=== PATIENT | female | born 1940 | race Caucasian/White ===

== ENCOUNTER → 2018-04-18 | Outpatient (CLI) | payer OTHER ==
--- NOTE | 2018-04-18 14:51 | Diagnostic Imaging Report ---
INDICATION: Right-sided abdominal pain. FINDINGS: The lungs are clear. The heart size and vascularity are normal. There is no effusion or pneumothorax. There is some air trapping or an aggressive inspiratory volume. The chest is otherwise negative. There are clips at the gallbladder fossa. The bowel gas pattern is unremarkable. There is stool within the colon but its volume is not pathologic. No abnormal distention of small or large bowel. No air/fluid levels. No pneumatosis. No free gas. IMPRESSION: No acute finding is apparent. Dictated by: Dictated on workstation # [id number]
== END ==
LOC: RAD FS 13:57
PROVIDERS: ATTEND Family Medicine
DX: R10.11 Right upper quadrant pain (principal)
CPT/HCPCS: 74022

== ENCOUNTER 2020-07-11 10:45 | Emergency (ER) | payer MEDICARE ==
[~2020-07-11] VITALS: Ht 170 cm; Wt 81.0 kg
[2020-07-11 10:55] VITALS: BP 142/75
--- NOTE | 2020-07-11 11:16 | ED General ---
General Chief Complaint: General Problems/Pain Stated Complaint: INSOMNIA | STOMACH ACHE | NO APPETITE Nursing Triage Note: VAGUE COMPLAINTS OF APPETITE CHANGES AND CANT SLEEP. Nursing Sepsis Screen: No Definite Risk Source of Information: Patient History of Present Illness Date Seen by Provider: July 11, 2020 Time Seen by Provider: 11:07 Initial Comments 79-year-old female presents with complaint of not being able to sleep at night. Symptoms have been going on for several weeks and getting worse. Months of feeling shaky and anxious. Patient relating most of her symptoms from her knee replacement over a month ago, she took pain medication up until a few days ago and says that it upset her stomach but she was still taking it daily. Denies any fever chills, cough or shortness of air, chest pain or swelling of ext remities. Currently denies any abdominal pain, but states she is occasionally nauseous and has a better appetite. Allergies and Home Medications Allergies Coded Allergies: amoxicillin (Verified Allergy, Unknown, 07/11/20) cyclobenzaprine (Verified Allergy, Unknown, 07/11/20) lisinopril (Verified Allergy, Unknown, 07/11/20) Patient Home Medication List Home Medication List Reviewed: Yes Review of Systems Review of Systems Constitutional: No chills, No fever; malaise EENTM: no symptoms reported Respiratory: No short of breath Cardiovascular: No chest pain, No palpitations Gastrointestinal: No abdominal pain, No constipation, No diarrhea; loss of appetite, nausea; No vomiting Musculoskeletal: No back pain, No neck pain Skin: No change in color, No lesions, No rash Psychiatric/Neurological: Anxiety; Denies Depressed; Emotional Problems (crying more than normal); Denies Headache, Denies Numbness, Denies Paresthesia, Denies Weakness Past [id number] Hx Patient Social History Alcohol Use: Denies Use Smoking Status: Never a Smoker Recent Infectious Disease Expo: No Recent Hopitalizations: No Seasonal Allergies Seasonal Allergies: No Past Medical History Surgeries: Yes Appendectomy, Gallbladder, Hysterectomy, Orthopedic Respiratory: No Cardiac: Yes Hypertension 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 oz. kg; 28.00 BMI Method: General Appearance: No Apparent Distress, WD/WN HEENT: PERRL/EOMI, Normal ENT Inspection Respiratory: Chest Non Tender, Lungs Clear Cardiovascular: Regular Rate, Rhythm, No Edema Gastrointestinal: No Organomegaly, No Pulsatile Mass, Non Tender, Soft; No Distended, No Guarding, No Tenderness Back: No CVA Tenderness; No Muscle Spasm Extremity: Normal Capillary Refill, Normal Inspection, Normal Range of Motion, Non Tender Neurologic/Psychiatric: Alert, Oriented x3, No Motor/Sensory Deficits, Normal Mood/Affect Skin: Normal Color, Warm/Dry Progress/Results/Core Measures Suspected Sepsis Recent Fever Within 48 Hours: No Infection Criteria Present: None New/Unexplained Altered Menta: No Sepsis Screen: No Definite Risk SIRS Temperature: Pulse: 83 Respiratory Rate: 18 Laboratory Tests 07/11/20 11:08: White Blood Count 8.3 Blood Pressure 142 /75 Mean: 97 Laboratory Tests 07/11/20 11:08: Creatinine 0.76, Platelet Count 329, Total Bilirubin 0.8 Results/Orders Lab Results Laboratory Tests Test 07/11/20 11:08 07/11/20 11:25 Range/Units White Blood Count 8.3 4.3-11.0 10^3/uL Red Blood Count 4.46 4.35-5.85 10^6/uL Hemoglobin 14.4 11.5-16.0 G/DL Hematocrit 41 35-52 % Mean Corpuscular Volume 91 80-99 FL Mean Corpuscular Hemoglobin 32 25-34 PG Mean Corpuscular Hemoglobin Concent 36 32-36 G/DL Red Cell Distribution Width 11.7 10.0-14.5 % Platelet Count 329 130-400 10^3/uL Mean Platelet Volume 8.5 7.4-10.4 FL Immature Granulocyte % (Auto) 0 % Neutrophils (%) (Auto) 73 42-75 % Lymphocytes (%) (Auto) 20 12-44 % Monocytes (%) (Auto) 6 0-12 % Eosinophils (%) (Auto) 0 0-10 % Basophils (%) (Auto) 1 0-10 % Neutrophils # (Auto) 6.1 1.8-7.8 X 10^3 Lymphocytes # (Auto) 1.7 1.0-4.0 X 10^3 Monocytes # (Auto) 0.5 0.0-1.0 X 10^3 Eosinophils # (Auto) 0.0 0.0-0.3 10^3/uL Basophils # (Auto) 0.1 0.0-0.1 10^3/uL Immature Granulocyte # (Auto) 0.0 0.0-0.1 10^3/uL Sodium Level 140 135-145 MMOL/L Potassium Level 3.6 3.6-5.0 MMOL/L Chloride Level 102 98-107 MMOL/L Carbon Dioxide Level 25 21-32 MMOL/L Anion Gap 13 5-14 MMOL/L Blood Urea Nitrogen 15 7-18 MG/DL Creatinine 0.76 0.60-1.30 MG/DL Estimat Glomerular Filtration Rate > 60 BUN/Creatinine Ratio 20 Glucose Level 132 H 70-105 MG/DL Calcium Level 10.1 8.5-10.1 MG/DL Corrected Calcium 8.5-10.1 MG/DL Total Bilirubin 0.8 0.1-1.0 MG/DL Aspartate Amino Transf (AST/SGOT) 15 5-34 U/L Alanine Aminotransferase (ALT/SGPT) 9 0-55 U/L Alkaline Phosphatase 70 40-136 U/L Total Protein 7.8 6.4-8.2 GM/DL Albumin 4.7 H 3.2-4.5 GM/DL Lipase 59 8-78 U/L Urine Color YELLOW Urine Clarity SLIGHTLY CLOUDY Urine pH 7.0 5-9 Urine Specific Rock 1.015 L 1.016-1.022 Urine Protein NEGATIVE NEGATIVE Urine Glucose (UA) NEGATIVE NEGATIVE Urine Ketones NEGATIVE NEGATIVE Urine Nitrite NEGATIVE NEGATIVE Urine Bilirubin NEGATIVE NEGATIVE Urine Urobilinogen 0.2 < = 1.0 MG/DL Urine Leukocyte Esterase NEGATIVE NEGATIVE Urine RBC (Auto) TRACE-I NEGATIVE Urine RBC 0-2 /HPF Urine WBC NONE /HPF Urine Squamous Epithelial Cells >50 H /HPF Urine Crystals NONE /LPF Urine Bacteria TRACE /HPF Urine Casts NONE /LPF Urine Mucus NEGATIVE /LPF Urine Culture Indicated NO My Orders Orders - ROVENSTINE,RUEL L DO Ed Iv/Invasive Line Start (07/11/20 11:14) Urinalysis (07/11/20 11:14) Cbc With Automated Diff (07/11/20 11:14) Comprehensive Metabolic Panel (07/11/20 11:14) Lipase (07/11/20 11:14) Vital Signs/I&O 07/11/20 10:55 Temp 36.2 Pulse 83 Resp 18 B/P (MAP) 142/75 (97) Pulse Ox 99 O2 Delivery Room Air Capillary Refill : Less Than 3 Seconds Blood Pressure Mean: 97 Departure Impression Primary Impression: Adjustment insomnia Disposition: HOME, SELF-CARE Condition: Stable Departure-Patient Inst. Decision time for Depature: 11:38 Referrals: KACEY MEYER MD (PCP/Family) Primary Care Physician Patient Instructions: Insomnia (DC) Add. Discharge Instructions: Keep your appointment with Dr Meyer on Monday For helping with sleep: 1. Take one "TYLENOL-PM" nightly 2. Take Melatonin 5mg nightly continue both and see Dr Meyer as planned All discharge instructions reviewed with patient and/or family. Voiced understanding. RUEL KISER DO July 11, 2020 11:15
[2020-07-11 11:17] LABS: WHITE BLOOD COUNT 8.3 10^3/uL (4.3-11.0)
[2020-07-11 11:18] LABS: BASOPHILS # (AUTO) 0.1 10^3/uL (0.0-0.1); BASOPHILS % (AUTO) 1 % (0-10); EOSINOPHILS % (AUTO) 0 % (0-10); HEMATOCRIT 41 % (35-52); HEMOGLOBIN 14.4 G/DL (11.5-16.0); LYMPHOCYTES # (AUTO) 1.7 X 10^3 (1.0-4.0); LYMPHOCYTES % (AUTO) 20 % (12-44); MEAN CORPUSCULAR HEMOGLOBIN 32 PG (25-34); MEAN CORPUSCULAR HGB CONC 36 G/DL (32-36); MEAN CORPUSCULAR VOLUME 91 FL (80-99); MEAN PLATELET VOLUME 8.5 FL (7.4-10.4); MONOCYTES # (AUTO) 0.5 X 10^3 (0.0-1.0); MONOCYTES % (AUTO) 6 % (0-12); NEUTROPHILS # (AUTO) 6.1 X 10^3 (1.8-7.8); NEUTROPHILS % (AUTO) 73 % (42-75); PLATELET COUNT 329 10^3/uL (130-400)
[2020-07-11 11:33] LABS: COLOR,URINE YELLOW
[2020-07-11 11:34] LABS: BUN/CREATININE RATIO 20; CARBON DIOXIDE 25 MMOL/L (21-32); CHLORIDE 102 MMOL/L (98-107); CREATININE SERUM 0.76 MG/DL (0.60-1.30); GFR ESTIMATED > 60; GLUCOSE 132 MG/DL (70-105); POTASSIUM 3.6 MMOL/L (3.6-5.0); SODIUM 140 MMOL/L (135-145)
[2020-07-11 11:34] LABS: BACTERIA,URINE TRACE /HPF; BILIRUBIN,URINE NEGATIVE (NEGATIVE); CLARITY,URINE SLIGHTLY CLOUDY; GLUCOSE, URINE (UA) NEGATIVE (NEGATIVE); KETONES,URINE NEGATIVE (NEGATIVE); LEUKOCYTE ESTERASE ,URINE NEGATIVE (NEGATIVE); NITRITE,URINE NEGATIVE (NEGATIVE); PROTEIN,URINE NEGATIVE (NEGATIVE); RBC,URINE 0-2 /HPF; SQUAMOUS EPITHELIAL CELL,UR >50 /HPF
[2020-07-11 11:35] LABS: ALANINE AMINOTRANSFERASE 9 U/L (0-55); ALBUMIN 4.7 GM/DL (3.2-4.5); ALKALINE PHOSPHATASE 70 U/L (40-136); BILIRUBIN,TOTAL 0.8 MG/DL (0.1-1.0); CALCIUM 10.1 MG/DL (8.5-10.1); LIPASE 59 U/L (8-78); TOTAL PROTEIN 7.8 GM/DL (6.4-8.2)
== END 2020-07-11 11:44 | disposition home or self-care (01) ==
LOC: ER FS 10:49 → MERGE 10:49 → ER FS 11:44
DX: F51.02 Adjustment insomnia (principal); I10 Essential (primary) hypertension; Z96.659 Presence of unspecified artificial knee joint; Z88.8 Allergy status to other drugs, medicaments and biological substances
CPT/HCPCS: 36415; 80053; 81000; 83690; 85025